=== PATIENT | female | born 1935 | race Caucasian/White ===

== ENCOUNTER 2020-07-07 20:59 | Inpatient (IN) ==
[2020-07-07] MEDS ORDERED: ASPIRIN 325 MG TABLET PO STA (21:19)
[2020-07-07] MEDS ORDERED: DILTIAZEM 50 MG/10 ML VIAL IV STA (21:19)
[2020-07-07] MEDS ORDERED: FUROSEMIDE 40 MG/4 ML VIAL IV STA (21:19)
[2020-07-07 22:29] LABS: Basophils % 0.2 % (0.0-0.8); Eosinophils % 0.1 % (0.00-10.9); Hematocrit 24.4 VOL% (35.7-47.0); Hemoglobin 7.6 GM/DL (12.0-16.0); Immature Granulocytes % 0.7 %; Immature Granulocytes Absolute 0.06 #; Lymphocytes # 0.9 10*3/uL (1.4-4.0); Lymphocytes % 10.9 % (21.3-54.2); Mean Corpuscular HGB Conc 31.1 GM/DL (32-36); Mean Corpuscular Volume 94.2 FL (87-102); Mean Platelet Volume 11.4 FL (9.6-12.0); Monocytes % 10.1 % (1.7-12.7); NRBC # 0.02 10*3/uL; Platelet Count 117 T/CUMM (130-400); Red Blood Count 2.59 MC/CUMM (3.8-5.5); Red Cell Distribution Width 16.6 % (9.3-17.3); White Blood Count 8.6 T/CUMM (4-12)
[2020-07-07 22:42] LABS: INR 1.8; PT Patient Result 18.7 SECS (9.8-11.9)
[2020-07-07 22:56] LABS: Albumin 2.4 G/DL (3.4-5.0); Bilirubin,Total 1.4 MG/DL (0.2-1.0); Osmolality,Calculated 276.5 MOS/KG (273-304); Total Protein 4.7 G/DL (6.4-8.3)
[2020-07-07 22:58] LABS: Troponin I 0.115 NG/ML (0.00-0.045)
[2020-07-07 22:59] LABS: Calcium 5.5 MG/DL (8.5-10.1)
[2020-07-07] MEDS ORDERED: CALCIUM GLUCONATE 2,000 MG in SODIUM CHLORIDE 0.9% 100 ML IV ONE (23:02)
[2020-07-08] MEDS ORDERED: GLUCAGON 1 MG VIAL IM PRN (01:31)
[2020-07-08] MEDS ORDERED: ACETAMINOPHEN 325 MG TABLET PO PRN (01:31)
[2020-07-08] MEDS ORDERED: DEXTROSE 50% 25 GM/50 ML VIAL IV PRN (01:31)
[2020-07-08] MEDS ORDERED: ONDANSETRON 4 MG/2 ML VIAL IV PRN (01:31)
[2020-07-08] MEDS ORDERED: MAGNESIUM SULF RIDER 2 GM in PREMIX 1 EACH IV PRN (01:45)
[2020-07-08] MEDS ORDERED: MAGNESIUM SULF RIDER 4 GM in PREMIX 1 EACH IV PRN (01:45)
[2020-07-08] MEDS ORDERED: DEXTROSE 50% 25 GM/50 ML SYRINGE IV PRN (02:08)
[2020-07-08 07:50] LABS: Basophils % 0.2 % (0.0-0.8); Eosinophils % 0.1 % (0.00-10.9); Hematocrit 29.1 VOL% (35.7-47.0); Hemoglobin 9.4 GM/DL (12.0-16.0); Immature Granulocytes % 0.7 %; Immature Granulocytes Absolute 0.06 #; Lymphocytes # 1.3 10*3/uL (1.4-4.0); Lymphocytes % 16.3 % (21.3-54.2); Mean Corpuscular HGB Conc 32.3 GM/DL (32-36); Mean Corpuscular Volume 91.5 FL (87-102); Mean Platelet Volume 11.3 FL (9.6-12.0); Neutrophils % 72.7 % (38.7-73.9); Platelet Count 135 T/CUMM (130-400); Red Blood Count 3.18 MC/CUMM (3.8-5.5); Red Cell Distribution Width 16.7 % (9.3-17.3); White Blood Count 8.1 T/CUMM (4-12)
[2020-07-08 08:32] LABS: Albumin 3.4 G/DL (3.4-5.0); Bilirubin,Total 1.4 MG/DL (0.2-1.0); Calcium 8.6 MG/DL (8.5-10.1); Ferritin 97.9 ng/ml (8-252); Osmolality,Calculated 263.8 MOS/KG (273-304); Total Protein 6.5 G/DL (6.4-8.3)
[2020-07-08 08:44] LABS: Folate 14.7 NG/ML (5.4-24.0); Vitamin B12 488 PG/ML (211-911)
[2020-07-08] MEDS ORDERED: DILTIAZEM 25 MG/5 ML VIAL IV ONE (08:53)
[2020-07-08] MEDS ORDERED: LOSARTAN 50 MG TABLET PO SCH (09:00)
[2020-07-08] MEDS: FUROSEMIDE 40 MG/4 ML VIAL IV SCH ×2 (09:13→17:11)
[2020-07-08] MEDS: OXYBUTYNIN 5 MG TABLET PO SCH (09:13)
[2020-07-08] MEDS: carvediloL 25 MG TABLET PO SCH ×2 (09:13→17:10)
[2020-07-08] MEDS: APIXABAN 5 MG TABLET PO SCH ×2 (09:13→20:58)
[2020-07-08] MEDS: INSULIN REGULAR 100 UNIT/ML SUBCUT SCH ×4 (09:14→20:59)
[2020-07-08] MEDS: SIMVASTATIN 10 MG TABLET PO SCH (09:14)
[2020-07-08] MEDS: PANTOPRAZOLE 40 MG TABLET PO SCH (09:14)
[2020-07-08 09:35] LABS: Sedimentation Rate-Westergren QNS MM/HR (0-30)
[2020-07-08] MEDS ORDERED: DILTIAZEM 50 MG/10 ML VIAL IV ONE (12:09)
[2020-07-08] MEDS: TIMOLOL 0.5% OPH SOLN 5 ML BOTTLE BOTH EYES SCH (12:35)
[2020-07-08] MEDS: DILTIAZEM CD 180 MG CAPSULE PO SCH (17:10)
[2020-07-08] MEDS: TRAVOPROST 0.004% OPH SOLN 2.5 ML BOTTLE BOTH EYES SCH (20:59)
[2020-07-08] MEDS: LOSARTAN 25 MG TABLET PO SCH (20:59)
[2020-07-09 06:50] LABS: Basophils % 0.3 % (0.0-0.8); Eosinophils # 0.2 10*3/uL (0.0-0.87); Hematocrit 27.8 VOL% (35.7-47.0); Immature Granulocytes % 0.7 %; Immature Granulocytes Absolute 0.06 #; Lymphocytes # 2.2 10*3/uL (1.4-4.0); Lymphocytes % 25.4 % (21.3-54.2); Mean Corpuscular HGB Conc 32.4 GM/DL (32-36); Mean Platelet Volume 10.6 FL (9.6-12.0); Monocytes % 14.9 % (1.7-12.7); Neutrophils % 56.7 % (38.7-73.9); Platelet Count 150 T/CUMM (130-400); Red Blood Count 3.09 MC/CUMM (3.8-5.5); White Blood Count 8.8 T/CUMM (4-12)
[2020-07-09 07:01] LABS: Calcium 8.4 MG/DL (8.5-10.1); Osmolality,Calculated 269.4 MOS/KG (273-304)
[2020-07-09] MEDS: INSULIN REGULAR 100 UNIT/ML SUBCUT SCH ×4 (09:30→21:15)
[2020-07-09] MEDS: FUROSEMIDE 40 MG/4 ML VIAL IV SCH ×2 (09:31→16:48)
[2020-07-09] MEDS: carvediloL 25 MG TABLET PO SCH ×2 (09:31→16:49)
[2020-07-09] MEDS: POTASSIUM CHLORIDE 20 MEQ TABLET PO PRN ×3 (09:32→13:15)
[2020-07-09] MEDS: SIMVASTATIN 10 MG TABLET PO SCH (09:32)
[2020-07-09] MEDS: OXYBUTYNIN 5 MG TABLET PO SCH (09:32)
[2020-07-09] MEDS: LOSARTAN 25 MG TABLET PO SCH ×2 (09:32→21:14)
[2020-07-09] MEDS: PANTOPRAZOLE 40 MG TABLET PO SCH (09:32)
[2020-07-09] MEDS: APIXABAN 5 MG TABLET PO SCH ×2 (09:32→21:14)
[2020-07-09] MEDS: DILTIAZEM CD 180 MG CAPSULE PO SCH (09:32)
[2020-07-09] MEDS: TIMOLOL 0.5% OPH SOLN 5 ML BOTTLE BOTH EYES SCH (09:34)
[2020-07-09] MEDS ORDERED: HYDROmorphone 2 MG/1 ML VIAL IV PRN (19:39)
[2020-07-09] MEDS: TRAVOPROST 0.004% OPH SOLN 2.5 ML BOTTLE BOTH EYES SCH (21:15)
[2020-07-10 05:24] LABS: Basophils % 0.5 % (0.0-0.8); Eosinophils # 0.2 10*3/uL (0.0-0.87); Eosinophils % 2.5 % (0.00-10.9); Hematocrit 27.4 VOL% (35.7-47.0); Hemoglobin 8.8 GM/DL (12.0-16.0); Immature Granulocytes % 0.6 %; Immature Granulocytes Absolute 0.05 #; Lymphocytes # 2.4 10*3/uL (1.4-4.0); Lymphocytes % 29.5 % (21.3-54.2); Mean Corpuscular HGB Conc 32.1 GM/DL (32-36); Mean Corpuscular Volume 91.6 FL (87-102); Neutrophils % 48.9 % (38.7-73.9); Platelet Count 171 T/CUMM (130-400); Red Blood Count 2.99 MC/CUMM (3.8-5.5); Red Cell Distribution Width 17.5 % (9.3-17.3); White Blood Count 8.2 T/CUMM (4-12)
[2020-07-10 05:49] LABS: Calcium 8.4 MG/DL (8.5-10.1); Osmolality,Calculated 269.2 MOS/KG (273-304)
[2020-07-10 05:50] LABS: Eosinophils 3 % (0-10); Hypochromasia 1+; Lymphocytes 28 % (20-55); Microcytosis 1+; Ovalocytes Slight; Platelet Estimate Adequate; Segmented Neutrophils 54 % (50-85); Total Cells Counted 100
[2020-07-10 09:09] LABS: Hemoglobin A1 (Alkaline) 98.1 % (96.5-98.5); Hemoglobin A2 (Alkaline) 1.9 % (1.5-3.5)
[2020-07-10] MEDS ORDERED: POTASSIUM CHLORIDE 20 MEQ TABLET PO ONE (10:44)
[2020-07-10] MEDS: INSULIN REGULAR 100 UNIT/ML SUBCUT SCH ×4 (11:43→20:53)
[2020-07-10] MEDS: DILTIAZEM CD 180 MG CAPSULE PO SCH (12:30)
[2020-07-10] MEDS: OXYBUTYNIN 5 MG TABLET PO SCH (12:30)
[2020-07-10] MEDS: APIXABAN 5 MG TABLET PO SCH ×2 (12:30→21:50)
[2020-07-10] MEDS: PANTOPRAZOLE 40 MG TABLET PO SCH (12:30)
[2020-07-10] MEDS: FUROSEMIDE 40 MG/4 ML VIAL IV SCH (12:31)
[2020-07-10] MEDS: SIMVASTATIN 10 MG TABLET PO SCH (12:31)
[2020-07-10] MEDS: TIMOLOL 0.5% OPH SOLN 5 ML BOTTLE BOTH EYES SCH (12:31)
[2020-07-10] MEDS: LOSARTAN 25 MG TABLET PO SCH ×2 (12:31→22:34)
[2020-07-10] MEDS: carvediloL 25 MG TABLET PO SCH ×2 (12:31→19:01)
[2020-07-10] MEDS: ASPIRIN CHEW 81 MG TABLET PO SCH (12:36)
[2020-07-10] MEDS ORDERED: MAGNESIUM SULF RIDER 2 GM in PREMIX 1 EACH IV ONE (13:48)
[2020-07-10] MEDS: TRAVOPROST 0.004% OPH SOLN 2.5 ML BOTTLE BOTH EYES SCH (21:50)
[2020-07-10] MEDS ORDERED: MELATONIN 3 MG TABLET PO PRN (22:15)
[2020-07-11 05:52] LABS: Basophils % 0.5 % (0.0-0.8); Eosinophils # 0.1 10*3/uL (0.0-0.87); Eosinophils % 1.5 % (0.00-10.9); Hematocrit 27.7 VOL% (35.7-47.0); Hemoglobin 8.9 GM/DL (12.0-16.0); Immature Granulocytes Absolute 0.06 #; Lymphocytes # 0.6 10*3/uL (1.4-4.0); Lymphocytes % 10.7 % (21.3-54.2); Mean Corpuscular HGB Conc 32.1 GM/DL (32-36); Mean Platelet Volume 10.1 FL (9.6-12.0); Monocytes % 15.4 % (1.7-12.7); NRBC # 0.03 10*3/uL; Neutrophils % 70.9 % (38.7-73.9); Platelet Count 170 T/CUMM (130-400); Red Blood Count 3.01 MC/CUMM (3.8-5.5); Red Cell Distribution Width 18.2 % (9.3-17.3); White Blood Count 5.9 T/CUMM (4-12)
[2020-07-11 06:08] LABS: Calcium 8.5 MG/DL (8.5-10.1); Osmolality,Calculated 273.1 MOS/KG (273-304)
[2020-07-11 08:34] VITALS: BP 122/78
[2020-07-11] MEDS ORDERED: INFLUENZA VIRUS VACCINE 0.5 ML SYRINGE IM ONE (09:00)
[2020-07-11] MEDS ORDERED: POTASSIUM CHLORIDE 20 MEQ TABLET PO SCH (09:00)
[2020-07-11] MEDS ORDERED: FUROSEMIDE 40 MG TABLET PO SCH (09:00)
[2020-07-11] MEDS: DILTIAZEM CD 180 MG CAPSULE PO SCH (09:31)
[2020-07-11] MEDS: INSULIN REGULAR 100 UNIT/ML SUBCUT SCH (09:32)
[2020-07-11] MEDS: carvediloL 25 MG TABLET PO SCH (09:32)
[2020-07-11] MEDS: ASPIRIN CHEW 81 MG TABLET PO SCH (09:32)
[2020-07-11] MEDS: APIXABAN 5 MG TABLET PO SCH (09:32)
[2020-07-11] MEDS: SIMVASTATIN 10 MG TABLET PO SCH (09:32)
[2020-07-11] MEDS: LOSARTAN 25 MG TABLET PO SCH (09:32)
[2020-07-11] MEDS: PANTOPRAZOLE 40 MG TABLET PO SCH (09:32)
[2020-07-11] MEDS: OXYBUTYNIN 5 MG TABLET PO SCH (09:32)
== END 2020-07-11 10:14 | disposition home health service (06) | DRG 291 ==
LOC: EDUNIT# → EDBD → N.ED 20:59 → N.EDINP 07-08 01:31 → SUATTDRO 07-08 01:31 → N.EDINP 07-08 02:37 → N.TELEN 07-08 02:38
PROVIDERS: ADMIT Family Medicine; ATTEND Internal Medicine